=== PATIENT | female | born 1980 | race Caucasian/White ===

== ENCOUNTER 2021-01-23 06:50 | Emergency (ER) | payer MEDICAID, SELFPAY ==
[2021-01-23 06:54] VITALS: BP 137/92; PULSE 102; RESP 17; TEMP 36.9; O2SAT 99; BMI 30.4
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
--- NOTE | 2021-01-23 06:58 | CT_ITS ---
WS: [id number] CT HEAD NONCONTRAST HISTORY: trauma TECHNIQUE: Contiguous axial imaging performed through the brain in 2.5 mm imaging. Bone and soft tiss ue windows. Sagittal and coronal reformats reviewed. All CT scans at [facility] use at ast one of these dose optimization techniques: automated exposure control; mA and/or kV adjustment pe r patient size (includes targeted exams where dose is matched to clinical indication); or iterative r econstruction. DLP: 981.76 mGy.cm COMPARISON: None available. No acute intracranial hemorrhage, midline shift or mass effect. No atrophy or prior infarcts or herniation. Mild increased density along the tentorium and interhemi spheric falx is very symmetric is probably normal for this patient. No asymmetry to suggest an acute bleed. Ventricles: Normal size with no hydrocephalus. Paranasal sinuses: As visualized are clear. Mastoid air cells: Well pneumatized. Calvarium and scalp: Skull is intact with no soft tissue edema or swelling. CT/CT head wo con* [id number] IMPRESSION: No acute intracranial hemorrhage or edema. No skull fracture.
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
--- NOTE | 2021-01-23 07:16 | CT_ITS ---
WS: [id number] CT LUMBAR SPINE, noncontrast. HISTORY: pain TECHNIQUE: Contiguous 2.5 mm axial imaging are performed. Sagittal and coronal reformats are submitte d and reviewed. All CT scans at [facility] use at least one of these dose optimization te chniques: automated exposure control; mA and/or kV adjustment per patient size (includes targeted exa ms where dose is matched to clinical indication); or iterative reconstruction. IV contrast: None DLP: 1990.1 mGy.cm COMPARISON: None available. Posterior lumbar alignment is normal. Acute fracture along the superior endplate of L3. There is very minimal concave deformity along the LEFT lateral aspect of the vertebral body. Fracture does not ext end into the posterior elements. Transverse processes are intact. L1-2: Normal. L2-3: Small posterior central osteophyte. No significant stenosis. L3-4: Mild annular disc bulging and posterior osteophyte. L4-5: Mild annular disc bulging. Disc is contacting but not displacing the L4 and L5 nerve roots. Mil d central and bilateral foraminal stenosis. Bilateral facet joint arthritis. L5-S1: Moderate bilateral facet joint arthritis. Mild fragmentation and hypertrophic bone formation a t the facet joints appears all degenerative. Mild annular disc bulging and mild bilateral foraminal s tenosis due to disc and osteophyte disease. Sacrum is intact. Visualized posterior retroperitoneal structures are negative. The liver is enlarged and extends over the ilium. CT/CT lumbar spine wo con* [id number] IMPRESSION: 1. Acute L3 compression fracture by 10% without involvement of the posterior e lements. No retropulsion. 2. No additional acute fractures. 3. Enlarged liver. 4. Facet joint arthritis at L4-5 and L5-S1.
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
[2021-01-23 07:20] LABS: Basophils # 0.1 10^3/uL (0.0-0.1); Basophils % 0.7 %; Eosinophils # 0.7 10^3/uL (0.0-0.8); Eosinophils % 4.3 %; Hematocrit 43.2 % (37.0-47.0); Hemoglobin 13.8 g/dL (11.5-15.3); Lymphocytes # 4.4 10^3/uL (0.8-4.8); Lymphocytes % 27.4 %; Mean Corpuscular HGB Conc 31.9 g/dL (30.0-36.0); Mean Corpuscular Hemoglobin 35.1 pg (28.0-34.0); Mean Corpuscular Volume 109.9 fL (81-99); Monocytes # 1.8 10^3/uL (0.2-0.9); Monocytes % 11.6 %; Nucleated Red Blood Cells % 0.1 %; Platelet Count 435 10^3/cmm (130-400); Red Blood Count 3.93 10^6/uL (4.1-5.3); Red Cell Distribution Width 13.4 % (12.1-15.1); White Blood Count 15.9 10^3/uL (4.0-10.0)
[2021-01-23 07:29] LABS: INR 1.06 (0.8-1.2)
[2021-01-23 07:35] LABS: Alanine Aminotransferase 22 U/L (0-33); Albumin Level 4.2 g/dL (3.5-5.2); Alkaline Phosphatase 85 IU/L (35-105); Anion Gap 18.5 (5-19); Aspartate Amino Transferase 17 U/L (0-32); Blood Urea Nitrogen 14 mg/dL (6-20); Calcium 9.7 mg/dL (8.5-10.5); Carbon Dioxide 22 mmol/L (22-29); Chloride 103 mmol/L (98-107); Globulin 2.3 g/dL (1.3-4.6); Glomerular Filtration Rate 61.7 mL/min (90-130); Glucose 100 mg/dL (65-115); Osmolality Calculated 289 mOsm/kg (285-295); Potassium 4.5 mmol/L (3.5-5.1); Sodium 139 mmol/L (136-145); Total Bilirubin 0.3 mg/dL (0.15-1.2); Total Protein 6.5 g/dL (6.6-8.7)
[2021-01-23] MEDS: iodixanol 320 mg/mL 100mL Btl IV (08:03)
[2021-01-23 08:24] VITALS: RESP 22; O2SAT 97
[2021-01-23] MEDS: morphine 4 mg/mL SDV 1 mL IVP ×2 (08:24→08:58)
[2021-01-23] MEDS: tetanus-dipt-pertussis 0.5 mL SDV IM (08:30)
[2021-01-23 08:32] VITALS: BP 128/83; PULSE 89; RESP 20; O2SAT 96
[2021-01-23 08:35] VITALS: BP 128/83; PULSE 89; RESP 20; O2SAT 96
[2021-01-23] MEDS: sodium chloride 0.9% 1,000 ML 125 ML IV (08:48)
[2021-01-23 08:58] VITALS: RESP 20; O2SAT 98
[2021-01-23] MEDS: ondansetron 2 mg/ML SDV 2 mL 4 MG IVP (08:58)
--- NOTE | 2021-01-23 10:23 | DCPLANNER ---
manpower development specialist manager had message to schedule a follow up appointment for patient with ortho. manpower development specialist manager called the ortho clinic, spoke with Tasneem, gave clinic patients information. manpower development specialist manager was told that patients information would be printed and reviewed. Clinic will call patient with appointment information.
--- NOTE | 2021-01-30 14:43 | DCPLANNER ---
manager china called ortho to confirm that a followup appointment had been scheduled for patient. manager china spoke with Safia, she stated that patient is following up closer to home.
== END 2021-01-23 09:05 ==
PROVIDERS: Emergency Provider Family Medicine
DX: S32.030A Wedge compression fracture of third lumbar vertebra, initial encounter for closed fracture (principal); C92.00 Acute myeloblastic leukemia, not having achieved remission; S27.322A Contusion of lung, bilateral, initial encounter; S25.00XA Unspecified injury of thoracic aorta, initial encounter; Z79.01 Long term (current) use of anticoagulants; V89.2XXA Person injured in unspecified motor-vehicle accident, traffic, initial encounter; Z23 Encounter for immunization
CPT/HCPCS: 70450; 71260; 72125; 72131; 73590; 74177; 80053; 85025; 85610; 85730; 86850; 86900; 90471; 90715; 96361; 96374; 96375; 96376; 99285; J2270; J2405; J7030; Q9967